=== PATIENT | female | born 1930 | race Caucasian/White ===

== ENCOUNTER 2020-10-02 11:06 | Emergency (ER) | payer MEDICARE, OTHER ==
[~2020-10-02] VITALS: Ht 160 cm; Wt 61.3 kg
[2020-10-02 11:10] VITALS: BP 149/100
--- NOTE | 2020-10-02 11:25 | PHYS DOC ---
General Adult EDM: Chief Complaint: WRIST PAIN HPI: HPI: Patient is an 89-year-old female who presents to the ER for left forearm and hand pain following injury. Patient reports that she lost balance and fell onto her left arm on Friday. She denies being on blood thinners. Patient has wrist in Velcro wrist splint at this time. Patient denies any decreased sensation to extremity or decreased range of motion of the elbow. Patient has limited range of motion to left hand. (ANDREW KENNEDY APRN) Review of Systems: Review of Systems: 14 body systems of the review of systems have been reviewed. See HPI for pertinent positive and negative responses, otherwise all other systems are negative, nonpertinent or noncontributory (ANDREW KENNEDY APRN) Physical Exam: PE: Constitutional: Well developed, well nourished, no acute distress, non-toxic appearance. [] HENT: Normocephalic, atraumatic Eyes: PERRLA, EOMI, conjunctiva normal, no discharge. [] Neck: Normal range of motion, no stridor Cardiovascular normal peripheral perfusion Lungs & Thorax: Normal work of breathing, no tachypnea Skin: Warm, dry, no erythema, no rash. [] Back: Normal range of motion Extremities: No tenderness, no cyanosis, no clubbing, ROM intact, no edema. Left upper extremity: Swelling and ecchymosis noted to left forearm and hand, neuro intact, range of motion of elbow intact, limited range of motion of wrist and hand. Neurologic: Alert and oriented X 3, normal motor function, normal sensory function, no focal deficits noted. [] Psychologic: Affect normal, judgement normal, mood normal. [] (ANDREW KENNEDY APRN) EKG: EKG: [] (ANDREW KENNEDY APRN) Radiology/Procedures: Radiology/Procedures: PROCEDURE: HAND LEFT 3V EXAM: XR FOREARM_LEFT 2 VIEWS, XR HAND_LEFT 3 VIEWS 10/02/2020 11:25 AM CLINICAL INDICATION: Fall COMPARISON: None TECHNIQUE: 3 views of the left hand, 2 views of the left forearm FINDINGS: Left hand: There is a impacted distal radial metaphyseal fracture. 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 There is diffuse soft tissue swelling. Left forearm: Distal radius fracture as above. No other fracture or malalignment of the forearm. There is diffuse soft tissue swelling. IMPRESSION: 1. Impacted distal radius fracture. 2. 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 Electronically signed by: Cristina Mayfield MD (10/02/2020 12:07 PM) [id number] DICTATED AND SIGNED BY: CRISTINA MAYFIELD MD DATE: 10/02/20 1204 CC: ANDREW KENNEDY APRN; PCP,NO ~MTH0 0 [] (ANDREW KENNEDY APRN) Heart Score: C/O Chest Pain: No Risk Factors: Risk Factors: DM, Current or recent (<one month) smoker, HTN, HLP, family history of CAD, obesity. Risk Scores: Score 0 - 3: 2.5% MACE over next 6 weeks - Discharge Home Score 4 - 6: 20.3% MACE over next 6 weeks - Admit for Clinical Observation Score 7 - 10: 72.7% MACE over next 6 weeks - Early Invasive Strategies (ANDREW KENNEDY APRN) Course & Med Decision Making: Course & Med Decision Making Pertinent Labs and Imaging studies reviewed. (See chart for details) Patient is an 89-year-old female who presents for left forearm and hand pain following an injury on Friday. An x-ray was performed that showed a impacted distal radius fracture of the left arm. I discussed patients case with Dr. Parker at [facility]. Patient placed in volar splint and provided with follow-up information for orthopedic physician. Neuro intact pre and post splint placement. Patient advised to take Tylenol/ibuprofen for pain that she does not tolerate opiates. I discussed with patient all findings and diagnostic testing as well as the need to follow-up with PCP for further evaluation and treatment or return to the ER if any new or worsening symptoms. Strict return precautions were also discussed at length. Patient voiced understanding and agreement with the plan. Patient is hemodynamically stable at the time of disposition. (ANDREW KENNEDY APRN) Course & Med Decision Making I was the Attending physician on the above date of service of this patient. This patient was evaluated, examined, treated, and dispositioned from the emergency department by the mid-level practitioner. Electronically signed, Lance Smith DO (LANCE SMITH DO) Kristen Disclaimer: Kristen Disclaimer: This electronic medical record was generated, in whole or in part, using a voice recognition dictation system. (ANDREW KENNEDY APRN) Departure Departure: Impression: Primary Impression: Radius distal fracture Qualified Codes: S52.502A - Unspecified fracture of the lower end of left radius, initial encounter for closed fracture Disposition: HOME / SELF CARE / HOMELESS Condition: GOOD Referrals: PCP,NO (PCP) Patient Instructions: Forearm Fracture, RICE - Routine Care for Injuries Additional Instructions: [facility]: [phone] You were seen in the ER today for a fracture or broken bone. You had a splint placed to help with pain and healing. You will need to follow-up with the orthopedic doctors in the orthopedic clinic as soon as possible. Please see attached information regarding follow-up physician. You should perform range of motion exercises to prevent stiffness of your joints. Splints help with the pain and can promote healing but immobility can cause chronic pain over time. Please refer to these attached instructions regarding range of motion exercises. Keep the splint clean and dry avoid getting it wet. If the splint gets wet you will need to have it replaced. You should use ice and elevation to help with the swelling and pain. For the first 24 hours apply ice 20 minutes on 20 minutes off 4 times per day. Ensure that ice is in a plastic bag as to not get the splint wet. You may take NSAID medications (Tylenol, ibuprofen, naproxen) to help with the pain. Please return to the emergency department if you develop any of the following symptoms: Increasing pain that does not improve with treatments. New numbness or tingling Warmth, redness, skin discoloration, skin breakdown, drainage from under splint or near splinted area. Increasing inability to move your extremity or digits. Foul odor coming from splint Fevers or chills Nausea or vomiting Persistent lightheadedness We would be happy to see you for any other concerning symptoms regarding your splinted extremity. ANDREW KENNEDY APRN Oct 02, 2020 11:25 LANCE SMITH DO Oct 03, 2020 08:03
--- NOTE | 2020-10-02 12:09 | RAD ---
EXAM: XR FOREARM_LEFT 2 VIEWS, XR HAND_LEFT 3 VIEWS 10/02/2020 11:25 AM CLINICAL INDICATION: Fall COMPARISON: None TECHNIQUE: 3 views of the left hand, 2 views of the left forearm FINDINGS: Left hand: There is a impacted distal radial metaphyseal fracture. There is severe erosive osteoarthr itis at the proximal interphalangeal joints. Severe osteoarthrosis at the first CMC joint and milder scattered elsewhere. There is diffuse soft tissue swelling. Left forearm: Distal radius fracture as above. No other fracture or malalignment of the forearm. Ther e is diffuse soft tissue swelling. IMPRESSION: 1. Impacted distal radius fracture. 2. 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 Electronically signed by: Cristina Mayfield MD (10/02/2020 12:07 PM) [id number]
[2020-10-02] MEDS ORDERED: ACETAMINOPHEN 325 MG TABLET PO ONE (12:30)
== END 2020-10-02 13:58 | disposition home or self-care (01) ==
LOC: ER 11:06
DX: S52.502A Unspecified fracture of the lower end of left radius, initial encounter for closed fracture (principal); W18.39XA Other fall on same level, initial encounter; Y93.89 Activity, other specified; Y92.89 Other specified places as the place of occurrence of the external cause; Y99.8 Other external cause status
CPT/HCPCS: 29125; 73090; 73130; 99284-25